=== PATIENT | male | born 1970 | race African-American/Black ===

== ENCOUNTER 2017-09-19 02:12 | Emergency (ER) | payer OTHER ==
[~2017-09-19] VITALS: Ht 172.7 cm; Wt 97.5 kg
[2017-09-19 02:17] VITALS: BP 138/92
== END 2017-09-19 05:25 | disposition left against medical advice (07) ==
LOC: ER 02:12
DX: M79.604 Pain in right leg (principal); Z53.21 Procedure and treatment not carried out due to patient leaving prior to being seen by health care provider

== ENCOUNTER 2017-11-17 00:17 | Emergency (ER) | payer OTHER ==
[~2017-11-17] VITALS: Ht 172.7 cm; Wt 82.0 kg
[2017-11-17] MEDS ORDERED: MORPHINE SULFATE 4 MG/ML CPJ (NOT FOR IM USE) IV ONE ×2 (07:00→10:15)
[2017-11-17 08:09] LABS: CHLORIDE 107 mEq/L (98-107)
[2017-11-17 08:12] LABS: INR 1.1; PROTHROMBIN TIME 11.4 sec (9.4-11.6)
[2017-11-17 08:24] LABS: BASOPHILS % 0.2 % (0.0-2.0); EOSINOPHILS % 0.6 % (0.0-5.0); HEMATOCRIT. 40.6 % (42.0-52.0); HEMOGLOBIN. 13.2 g/dL (14.0-18.0); LYMPHOCYTES % 14.7 % (20.0-50.0); MEAN CORPUSCULAR HEMOGLOBIN 23.9 pg (28.0-32.0); MEAN CORPUSCULAR VOLUME 73.6 fL (80.0-94.0); MEAN PLATELET VOLUME 8.6 fl (7.4-10.4); NEUTROPHILS % 76.5 % (40.0-76.0); PLATELET 272 x1000/uL (130-400); RED BLOOD CELL COUNT 5.51 mill/uL (4.7-6.1)
[2017-11-17] MEDS ORDERED: SODIUM CHLORIDE 0.9% 1,000 ML IV ONE (09:00)
[2017-11-17] MEDS ORDERED: TETANUS, DIPHTHERIA, PERTUSSIS VAC/PF 0.5ML (>7YR OLD) IM ONE (09:00)
[2017-11-17] MEDS ORDERED: LIDOCAINE HCL 1% 20ML VIAL (Pyxis) INJ MC ONE (09:00)
[2017-11-17] MEDS ORDERED: LIDOCAINE HCL/PF 1% 10 MG/ML 5ML VIAL IJ NR (09:30)
[2017-11-17] MEDS ORDERED: CLINDAMYCIN 300 MG in DEXTROSE 5% WATER 50 ML IV ONE (09:45)
[2017-11-17 11:34] VITALS: BP 149/103
== END 2017-11-17 11:40 | disposition home or self-care (01) ==
LOC: ER 00:17
DX: L02.213 Cutaneous abscess of chest wall (principal); I10 Essential (primary) hypertension; R79.1 Abnormal coagulation profile
CPT/HCPCS: 10060; 36415; 71250; 80053; 83605; 85025; 85610; 87040; 90471; 90715; 96365; 96375; 96376; 99285; J2270; J3490; J7030; Z7610; J7060

== ENCOUNTER 2018-04-22 03:25 | Emergency (ER) | payer OTHER ==
[~2018-04-22] VITALS: Ht 172.7 cm; Wt 83.0 kg
[2018-04-22] MEDS ORDERED: OXYCODONE HCL 5MG TABLET PO ONE (06:30)
[2018-04-22 07:10] VITALS: BP 156/97
[2018-04-22 07:55] LABS: CLARITY URINE CLEAR (CLEAR); COLOR URINE YELLOW (YELLOW); KETONES URINE NEGATIVE (NEGATIVE); LEUKOCYTE ESTERASE URINE NEGATIVE (NEGATIVE); NITRITE URINE NEGATIVE (NEGATIVE); OCCULT BLOOD URINE NEGATIVE (NEGATIVE); PH URINE 7.5 (4.5-8.0); PROTEIN URINE NEGATIVE (NEGATIVE); SPECIFIC GRAVITY URINE 1.009 (1.005-1.030); UROBILINOGEN URINE 0.2 E.U./dL (0.2-1.0)
== END 2018-04-22 07:53 | disposition home or self-care (01) ==
LOC: ER 05:35
DX: M54.5 Low back pain (principal); M62.838 Other muscle spasm; M51.36 Other intervertebral disc degeneration, lumbar region; V18.0XXA Pedal cycle driver injured in noncollision transport accident in nontraffic accident, initial encounter; Y93.55 Activity, bike riding; Y92.89 Other specified places as the place of occurrence of the external cause; I10 Essential (primary) hypertension
CPT/HCPCS: 72100; 99285

== ENCOUNTER 2018-07-29 07:19 | Emergency (ER) | payer OTHER ==
[~2018-07-29] VITALS: Ht 172.7 cm; Wt 82.0 kg
[2018-07-29] MEDS ORDERED: IBUPROFEN 600MG TABLET PO ONE (10:00)
[2018-07-29 11:13] VITALS: BP 174/100
== END 2018-07-29 12:26 | disposition home or self-care (01) ==
LOC: ER 07:19
DX: J40 Bronchitis, not specified as acute or chronic (principal); M54.5 Low back pain; Z59.0 Homelessness
CPT/HCPCS: 71045; 99283